=== PATIENT | female | born 1950 | race Caucasian/White ===

== ENCOUNTER → 2019-10-08 13:01 | Outpatient (CLI) | payer MEDICARE, SELFPAY ==
--- NOTE | ~2019-10-08 | MM_ITS ---
EXAMINATION: MM screening may BI w howie HISTORY: Screening mammogram TECHNIQUE: Craniocaudal and mediolateral oblique 3-D tomosynthesis images were obtained and synthetic 2-D images were generated. CAD analysis was submitted and interpreted. COMPARISON: 09/16/2018 diagnostic left digital mammogram 09/02/2018 bilateral digital screening mammogram 08/07/2017, 06/25/2016 bilateral digital screening mammogram examinations BREAST PARENCHYMAL COMPOSITION: There are scattered areas of fibroglandular density. FINDINGS: Stable mild fibroglandular asymmetry. There is no evidence of suspicious mass, calcificatio n, or architectural distortion to suggest malignancy in either breast. There has been no suspicious i nterval change. IMPRESSION: 1. No mammographic evidence of malignancy. 2. Recommend routine screening mammography in one year. BI-RADS Category 2: Benign finding(s). Reviewed, dictated and finalized at location A. 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
== END ==
PROVIDERS: PCP Internal Medicine; Visit Provider Nurse Practitioner Family
DX: Z12.31 Encounter for screening mammogram for malignant neoplasm of breast (principal)
CPT/HCPCS: 77063; 77067

== ENCOUNTER → 2020-11-22 10:10 | Outpatient (CLI) | payer MEDICARE, SELFPAY ==
--- NOTE | ~2020-11-22 | MM_ITS ---
EXAMINATION: MM screening [facility] BI w howie HISTORY: Screening mammogram TECHNIQUE: Craniocaudal and mediolateral oblique 3-D tomosynthesis images were obtained and synthetic 2-D images were generated. CAD analysis was submitted and interpreted. COMPARISON: 10/08/2019, 09/16/2018, 09/12/2018, 08/07/2017 BREAST PARENCHYMAL COMPOSITION: There are scattered areas of fibroglandular density. FINDINGS: There is no evidence of suspicious mass, calcification, or architectural distortion to sugg est malignancy in either breast. There has been no suspicious interval change. IMPRESSION: 1. No mammographic evidence of malignancy. 2. Recommend routine screening mammography in one year. BI-RADS Category 1: Negative Reviewed, dictated and finalized at location A.
== END ==
PROVIDERS: Visit Provider Obstetrics & Gynecology Gynecology
DX: Z12.31 Encounter for screening mammogram for malignant neoplasm of breast (principal)
CPT/HCPCS: 77063; 77067

== ENCOUNTER → 2022-03-19 10:10 | Outpatient (CLI) | payer MEDICARE, SELFPAY ==
--- NOTE | ~2022-03-19 | MM_ITS ---
EXAMINATION: MM screening may BI w howie HISTORY: Screening mammogram TECHNIQUE: Craniocaudal and mediolateral oblique 3-D tomosynthesis images were obtained and synthetic 2-D images were generated. CAD analysis was submitted and interpreted. COMPARISON: 11/22/2020, 10/08/2019, 09/16/2018 bilateral screening mammogram examinations BREAST PARENCHYMAL COMPOSITION: There are scattered areas of fibroglandular density. FINDINGS: There is no evidence of suspicious mass, calcification, or architectural distortion to sugg est malignancy in either breast. There has been no suspicious interval change. IMPRESSION: 1. No mammographic evidence of malignancy. 2. Recommend routine screening mammography in one year. BI-RADS Category 1: Negative Reviewed, dictated and finalized at location A.
--- NOTE | ~2022-03-19 | DEXA_ITS ---
Bone Density Report Name: KRISSY MAGALLON Age: 71 Sex: Female Ethnicity: White Date of : 1950 Indication: osteopenia; monitoring treatment; parental hip fracture; postmenopausal Referring Provider: KESHAWN RODRIGUES Study: Bone densitometry was performed. Exam Date: March 19, 2022 Accession number: [id number] Bone Density: Region BMD T-score Z-score Classification AP Spine (L1-L4) 1.055 0.1 2.2 Normal Femoral Neck (Left) 0.601 -2.2 -0.4 Osteopenia Total Hip (Left) 0.767 -1.4 0.1 Osteopenia Femoral Neck (Right) 0.678 -1.5 0.3 Osteopenia Total Hip (Right) 0.759 -1.5 0.1 Osteopenia Total Hip Mean 0.763 -1.5 0.1 Osteopenia World Health Organization criteria for BMD impression classify patients as: Normal (T-score at or above -1.0), Osteopenia (T-score between -1.0 and -2.5), or Osteoporosis (T-score at or below -2.5). 10-year Fracture Risk: FRAX not reported because: Treated for osteoporosis Previous Exams: Region Exam Age BMD T-score BMD Change BMD Change Date g/cm2 vs Baseline vs Previous AP Spine(L1-L4) 03/19/2022 71 1.055 0.1 0.019 -0.007 09/02/2018 68 1.063 0.1 0.026 0.092* 06/25/2016 66 0.970 -0.7 -0.066 -0.084* 01/28/2011 60 1.054 0.1 0.018 -0.003 01/26/2008 57 1.058 0.1 0.021 0.021 11/02/2004 54 1.036 -0.1 Total Hip(Left) 03/19/2022 71 0.767 -1.4 -0.105* 0.024 09/02/2018 68 0.743 -1.6 -0.129* -0.032* 06/25/2016 66 0.775 -1.4 -0.097* -0.093* 01/28/2011 60 0.868 -0.6 -0.004 0.036* 01/26/2008 57 0.832 -0.9 -0.040* N/A 11/02/2004 54 N/A N/A 11/02/2004 54 0.872 -0.6 Total Hip(Right) 03/19/2022 71 0.759 -1.5 -0.081* -0.001 09/02/2018 68 0.759 -1.5 -0.080* -0.021 06/25/2016 66 0.781 -1.3 -0.059* -0.066* 01/28/2011 60 0.847 -0.8 0.008 -0.026 01/26/2008 57 0.872 -0.6 0.033* 0.033* 11/02/2004 54 0.839 -0.8 *Denotes significance at 95% confidence level, LSC for AP Spine = 0.022 g/cm2, LSC for Total Hip = 0.027 g/cm2 Clinical Information Provided by Patient: Parent has had a hip fracture Is being treated for osteoporosis Has used the following medications: Boniva (i.e. ibandronate), HRT (i.e. estrogen/hormone therapy
== END ==
PROVIDERS: PCP Internal Medicine; Visit Provider Obstetrics & Gynecology Gynecology
DX: Z12.31 Encounter for screening mammogram for malignant neoplasm of breast (principal); Z78.0 Asymptomatic menopausal state; M81.0 Age-related osteoporosis without current pathological fracture; M85.852 Other specified disorders of bone density and structure, left thigh; M85.851 Other specified disorders of bone density and structure, right thigh
CPT/HCPCS: 77063; 77067; 77080

== ENCOUNTER → 2023-10-03 12:54 | Outpatient (CLI) | payer MEDICARE, SELFPAY ==
--- NOTE | ~2023-10-03 | MM_ITS ---
EXAMINATION: MM screening may BI w howie HISTORY: Screening mammogram TECHNIQUE: Craniocaudal and mediolateral oblique 3-D tomosynthesis images were obtained and synthetic 2-D images were generated. CAD analysis was submitted and interpreted. COMPARISON: 03/1302/11/2022, 5308/2020, bilateral screening mammogram examinations BREAST PARENCHYMAL COMPOSITION: There are scattered areas of fibroglandular density. FINDINGS: There is focal asymmetry in the upper outer left breast. Diagnostic left mammogram is recom mended, with ultrasound if required. Otherwise no suspicious mass, architectural distortion, malignant calcification, skin thickening or r etraction or significant new or developing density of either breast is detected. IMPRESSION: 1. Focal asymmetry in upper outer left breast 2. Diagnostic left mammogram is recommended, with ultrasound if required BI-RADS Category 0: Incomplete: Needs additional imaging evaluation. Reviewed, dictated and finalized at location A. 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
== END ==
PROVIDERS: PCP Internal Medicine; Visit Provider Internal Medicine
DX: Z12.31 Encounter for screening mammogram for malignant neoplasm of breast (principal); R92.8 Other abnormal and inconclusive findings on diagnostic imaging of breast
CPT/HCPCS: 77063; 77067

== ENCOUNTER 2023-11-05 08:39 | Outpatient (CLI) | payer MEDICARE, SELFPAY ==
--- NOTE | ~2023-11-05 | MMUS_ITS ---
EXAMINATION: MM diagnostic may LT w howie, US breast LT limited HISTORY: Focal asymmetry reported in upper outer left breast on October 03, 2023 screening mammogram TECHNIQUE: Additional 3-D tomosynthesis images of the left breast were performed and synthetic 2-D im ages were generated. CAD analysis was submitted and interpreted. High resolution upper outer quadrant left breast ultrasound was performed. COMPARISON: October 03, 2023 bilateral screening mammogram FINDINGS: MAMMOGRAPHIC FINDINGS: No suspicious mass or architectural distortion or other significant abnormality is detected on the le ft. ULTRASOUND: No suspicious mass, shadowing, cyst or other significant rib abnormalities are detected. IMPRESSION: 1. No evidence of malignancy 2. Routine annual mammographic screening is recommended BI-RADS Category 1: Negative Reviewed, dictated and finalized at location A. IMPRESSION: 1. No evidence of malignancy 2. Routine annual mammographic screening is recommended BI-RADS Category 1: Negative
== END 2023-11-05 08:40 ==
LOC: MICIMG 08:40
PROVIDERS: PCP Nurse Practitioner; Visit Provider Internal Medicine
DX: R92.8 Other abnormal and inconclusive findings on diagnostic imaging of breast (principal)
CPT/HCPCS: 76642; 77061; 77065; G0279

== ENCOUNTER 2025-03-25 09:43 | Outpatient (CLI) | payer MEDICARE, SELFPAY ==
--- NOTE | ~2025-03-25 | DEXA_ITS ---
Bone Density Report Name: KRISSY MAGALLON Age: 74 Sex: Female Ethnicity: White Date of : 1950 Indication: osteopenia; monitoring treatment; parental hip fracture; height loss; prior fracture; Referring Provider: KESHAWN RODRIGUES Study: Bone densitometry was performed. Exam Date: March 25, 2025 Accession number: [id number] Bone Density: Region BMD T-score Z-score Classification AP Spine(L1-L4) 1.036 -0.1 2.2 Normal Femoral Neck (Left) 0.600 -2.2 -0.2 Osteopenia Total Hip (Left) 0.748 -1.6 0.1 Osteopenia Femoral Neck (Right) 0.625 -2.0 0.0 Osteopenia Total Hip (Right) 0.742 -1.6 0.1 Osteopenia Total Hip Mean 0.745 -1.6 0.1 Osteopenia World Health Organization criteria for BMD impression classify patients as: Normal (T-score at or above -1.0), Osteopenia (T-score between -1.0 and -2.5), or Osteoporosis (T-score at or below -2.5). 10-year Fracture Risk: FRAX not reported because: Treated for osteoporosis Previous Exams: -- Region Exam Age BMD T-score BMD Change BMD Change Date g/cm2 vs Baseline vs Previous -- AP Spine (L1-L4) 03/25/2025 74 1.036 -0.1 0.0%# -1.8% 03/19/2022 71 1.055 0.1 1.9%# -0.7% 09/02/2018 68 1.063 0.1 2.6%# 9.5%* 06/25/2016 66 0.970 -0.7 -6.3%# -8.0%* 01/28/2011 60 1.054 0.1 1.8%# -0.3% 01/26/2008 57 1.058 0.1 2.1%# 2.1%# 11/02/2004 54 1.036 -0.1 Total Hip(Left) 03/25/2025 74 0.748 -1.6 -14.2%* -2.5% 03/19/2022 71 0.767 -1.4 -12.0%* 3.2% 09/02/2018 68 0.743 -1.6 -14.8%* -4.1%* 06/25/2016 66 0.775 -1.4 -11.1%* -10.7%* 01/28/2011 60 0.868 -0.6 -0.5% 4.3%* 01/26/2008 57 0.832 -0.9 -4.6%* N/A 11/02/2004 54 0.000 0.0 N/A N/A 11/02/2004 54 0.872 -0.6 Total Hip(Right) 03/25/2025 74 0.742 -1.6 -11.6%* -2.3% 03/19/2022 71 0.759 -1.5 -9.6%* -0.1% 09/02/2018 68 0.759 -1.5 -9.5%* -2.7% 06/25/2016 66 0.781 -1.3 -7.0%* -7.8%* 01/28/2011 60 0.847 -0.8 0.9% -2.9% 01/26/2008 57 0.872 -0.6 3.9%* 3.9%* 11/02/2004 54 0.839 -0.8 -- *Denotes significance at 95% confidence level, LSC for AP Spine = 0.022 g/cm2, LSC for Total Hip = 0.027 g/cm2 # Denotes dissimilar scan types or analysis methods Clinical Information Provided by Patient: Has had a low trauma fracture Parent has had a hip fracture Is being treated for osteoporosis Has used the following medications: Boniva (i.e. ibandronate), Vitamin D Patient maximum height was 63 Menopause Age: 51 No regular weight bearing exercise Drinks caffeinated beverages Onset of menses at age 15 Number of children 2 Impression: The patient has low bone mass, based on the Left Femoral Neck T-score. The patient has risk factors, including: parental hip fracture, previous fracture. No significant bone loss was observed. Discussion: PATIENT UNDER TREATMENT WITH NO SIGNIFICANT BMD LOSS SINCE LAST EXAM. In an untreated patient, BMD typically declines with age. A lack of decline or gain is usually a sign that treatment is efficacious and fracture risk is reduced. It is important to ask patients whether they are taking their medications and to encourage continued and appropriate compliance with their osteoporosis therapies to reduce fracture risk. It is also important to review their risk factors and encourage appropriate calcium and vitamin D intakes, exercise, fall prevention and other lifestyle measures. Follow-Up: Consider a repeat BMD and Vertebral Fracture Assessment (VFA) exam in 2 years or sooner if medically necessary, to reassess this patient's status. Reported by: KENYETTA on 03/25/2025 10:04:00 AM. Reviewed, dictated and finalized at location A.
== END 2025-03-25 09:44 | disposition home or self-care (01) ==
LOC: MICIMG 09:44
PROVIDERS: PCP Obstetrics & Gynecology Gynecology; Visit Provider Obstetrics & Gynecology Gynecology
DX: M85.89 Other specified disorders of bone density and structure, multiple sites (principal); Z78.0 Asymptomatic menopausal state
CPT/HCPCS: 77080

== ENCOUNTER 2025-05-18 14:34 | Outpatient (CLI) | payer MEDICARE, SELFPAY ==
--- NOTE | ~2025-05-18 | MM_ITS ---
EXAMINATION: MM screening may BI w howie HISTORY: Screening TECHNIQUE: Craniocaudal and mediolateral oblique 3-D tomosynthesis images were obtained and synthetic 2-D images were generated. CAD analysis was submitted and interpreted. COMPARISON: 03/19/2022 BREAST PARENCHYMAL COMPOSITION: There are scattered areas of fibroglandular density. FINDINGS: There is no evidence of suspicious mass, calcification, or architectural distortion to suggest malignancy. There has been no suspicious interval change. IMPRESSION: 1. No mammographic evidence of malignancy. Recommend routine screening mammography in one year. BI-RADS Category 2: Benign finding(s) Reviewed, dictated and finalized at location Q. IMPRESSION: 1. No mammographic evidence of malignancy. Recommend routine screening mammogra phy in one year. BI-RADS Category 2: Benign finding(s)
== END 2025-05-18 14:35 | disposition home or self-care (01) ==
LOC: MICIMG 14:35
PROVIDERS: PCP Obstetrics & Gynecology Gynecology; Visit Provider Obstetrics & Gynecology Gynecology
DX: Z12.31 Encounter for screening mammogram for malignant neoplasm of breast (principal)
CPT/HCPCS: 77063; 77067